=== PATIENT | female | born 1995 | race Caucasian/White ===

== ENCOUNTER 2016-12-06 17:19 | Emergency (ER) | payer OTHER ==
[2016-12-06 17:29] VITALS: BP 121/59; PULSE 80; TEMP 98.3; BMI 18.2
--- NOTE | 2016-12-06 18:06 | PDOC ---
History of Present Illness - General Chief Complaint: Urinary Problem Stated Complaint: KIDNEY INFECTION Time Seen by Provider: 12/06/16 17:48 History Source: Patient Exam Limitations: No Limitations - History of Present Illness Initial Comments: 12/06/16 18:41 Chief complaint: Painful urination with urgency and urinating more frequently for 2 days History of Present Illness: She is a 21-year-old female with a history of asthma and UTIs here today complaining of dysuria, urgency, and frequency 2 days. Patient denies any hematuria. Patient denies any fever, or any CVA tenderness or nausea or vomiting. Patient reports her last menstrual cycle being 11/17/2016. 12/06/16 18:49 Timing/Duration: getting worse Severity: moderate Associated Symptoms: reports: denies symptoms Past History - Past Medical History Allergies/Adverse Reactions: Allergies Allergy/AdvReac Type Severity Reaction Status Date / Time No Known Allergies Allergy Verified 12/06/16 17:24 Home Medications: Ambulatory Orders Nitrofurantoin Monohyd/M-Cryst [Macrobid -] 100 mg PO BID #14 capsule 12/06/16 Phenazopyridine HCl [Pyridium] 200 mg PO TID #5 tablet 12/06/16 Asthma: Yes - Immunization History Immunization Up to Date: Yes - Psycho/Social/Smoking Cessation Hx Anxiety: No Suicidal Ideation: No Smoking Status: No Smoking History: Never smoked Have you smoked in the past 12 months: No Number of Cigarettes Smoked Daily: 0 Information on smoking cessation initiated: No Hx Alcohol Use: No Drug/Substance Use Hx: No Substance Use Type: None Review of Systems - Review of Systems Able to Perform ROS?: Yes Constitutional: No: Symptoms Reported HEENTM: No: Symptoms Reported Respiratory: No: Symptoms reported Cardiac (ROS): No: Symptoms Reported ABD/GI: No: Symptoms Reported : Yes: Dysuria, Frequency, Urgency (for 2 hours ). No: Flank Pain, Hematuria Musculoskeletal: No: Symptoms Reported Integumentary: No: Symptoms Reported Neurological: No: Symptoms reported *Physical Exam - Vital Signs Last Vital Signs Temp Pulse Resp BP Pulse Ox 98.3 F 80 18 121/59 99 12/06/16 17:24 12/06/16 17:24 12/06/16 17:24 12/06/16 17:24 12/06/16 17:24 - Physical Exam General Appearance: Yes: Appropriately Dressed Respiratory/Chest: positive: Lungs Clear, Normal Breath Sounds. negative: Chest Tender, Respiratory Distress Cardiovascular: positive: Regular Rhythm, Regular Rate, S1, S2 Gastrointestinal/Abdominal: positive: Normal Bowel Sounds, Soft. negative: Tender, Organomegaly, Increased Bowel Sounds, Distended, Guarding, Rebound, Tenderness, Hepatomegaly, Spleenomegaly Musculoskeletal: negative: CVA Tenderness, CVA Tenderness (R), CVA Tenderness (L ) Integumentary: positive: Normal Color Neurologic: positive: Alert, Normal Response Medical Decision Making - Medical Decision Making 12/06/16 18:50 She is a 21-year-old female with a history of asthma and UTIs here today complaining of dysuria, urgency, and frequency 2 days. Patient denies any hematuria. Patient denies any fever, or any CVA tenderness or nausea or vomiting. Patient reports her last menstrual cycle being 11/17/2016. R/O UTI acute cystitis PLAN: urinalysis urine C &S urine hcg negative macrobid 100 mg po now than bid for 7 days pyridium 200 mg po now than tid for 2 days # 5 tabs given Laboratory Tests 12/06/16 18:20 Urine Color Ltyellow Urine Appearance Clear Urine pH 6.0 Ur Specific Lohn 1.023 Urine Protein Negative Urine Glucose (UA) Negative Urine Ketones Negative Urine Blood 1+ H Urine Nitrite Negative Urine Bilirubin Negative Urine Urobilinogen Negative Ur Leukocyte Esterase 1+ H Urine RBC 8 Urine WBC 29 Ur Epithelial Cells Rare Urine Mucus Rare Urine HCG, Qual Negative 12/06/16 19:40 *DC/Admit/Observation/Transfer Diagnosis at time of Disposition: Cystitis - Discharge Dispostion Disposition: HOME Condition at time of disposition: Stable - Patient Instructions Additional Instructions: Follow-up with your primary care provider for repeat urine testing at the end of treatment Return to emergency room if symptoms worsen any fever or nausea or vomiting Drink A lot of fluids especially cranberry juice Patient voiced understanding of discharge instructions and all questions were answered
[2016-12-06 18:39] LABS: URINE APPEARANCE CLEAR; URINE BILIRUBIN NEGATIVE (NEGATIVE); URINE COLOR LTYELLOW; URINE GLUCOSE (UA) NEGATIVE (NEGATIVE); URINE KETONE NEGATIVE (NEGATIVE); URINE NITRITE NEGATIVE (NEGATIVE); URINE PROTEIN NEGATIVE (NEGATIVE); URINE UROBILINOGEN NEGATIVE E.U./dl (0.2-1.0)
[2016-12-06 18:43] LABS: URINE BLOOD 1+ (NEGATIVE); URINE LEUK ESTERASE 1+ (NEGATIVE)
[2016-12-06 18:47] LABS: URINE MUCUS RARE; URINE RBC 8 /hpf (0-3); URINE WBC 29 /hpf (3-5)
[2016-12-06] MEDS ORDERED: PHENAZOPYRIDINE HCL 100 MG TABLET (FP) PO ONE (19:41)
[2016-12-06] MEDS ORDERED: PHENAZOPYRIDINE HCL 100 MG TABLET (FP) ONE (19:42)
[2016-12-06] MEDS ORDERED: NITROFURANTOIN MACROCRYSTAL 50 MG CAPSULE (FP) ONE (19:42)
[2016-12-06] MEDS ORDERED: NITROFURANTOIN MACROCRYSTAL 50 MG CAPSULE (FP) PO SCH (19:45)
== END 2016-12-06 19:58 | disposition home or self-care (01) ==
LOC: JERFT 17:19
DX: N30.90 Cystitis, unspecified without hematuria (principal); J45.909 Unspecified asthma, uncomplicated
CPT/HCPCS: 81003; 81015; 84703; 87086; 99281-25

== ENCOUNTER → 2017-01-29 | Emergency (ER) | payer OTHER ==
[2017-01-29 00:20] VITALS: BP 107/61; PULSE 76; TEMP 98; BMI 18.9
--- NOTE | 2017-01-29 00:36 | PDOC ---
History of Present Illness - General Chief Complaint: Vaginal Sxs Stated Complaint: SEVERE CRAMPS 7 WEEKS PREG Time Seen by Provider: 01/29/17 00:19 - History of Present Illness Initial Comments: 01/29/17 00:33 CHIEF COMPLAINT: severe cramping, 7 wks HISTORY OF PRESENT ILLNESS: 21 yo F with hx of asthma and UTIS presents to ED with severe cramping x 2 days. Patient denies any vaginal bleeding or vomiting, but report "a little nausea" and "diarrhea once a couple days ago." She denies any dysuria, urinary frequency, or hematuria. No recent travel or sick contacts. PAST MEDICAL HISTORY: Denies past medical history FAMILY HISTORY: Denies SOCIAL HISTORY: Denies tobacco, alcohol, illicit drug use. SURGICAL HISTORY: Denies ALLERGIES: No known drug allergies REVIEW OF SYSTEMS General/Constitutional: Denies fever or chills. Denies weakness, weight change. HEENT: Denies change in vision. Denies ear pain or discharge. Denies sore throat. Cardiovascular: Denies chest pain or shortness of breath. Respiratory: Denies cough, wheezing, or hemoptysis. Gastrointestinal: Cramping to lower abdomen x 2 days. "A little nausea." Denies vomiting or constipation. Denies vaginal bleeding. Genitourinary: Denies dysuria, frequency, or change in urination. Musculoskeletal: Denies joint or muscle swelling or pain. Denies neck or back pain. Skin and breasts: Denies rash or easy bruising. Neurologic: Denies headache, vertigo, loss of consciousness, or loss of sensation. PHYSICAL EXAM General Appearance: Well-appearing, appropriately dressed. No apparent distress. HEENT: EOMI, PERRLA, normal ENT inspection, normal voice, TMs normal, pharynx normal. No conjunctival pallor. No photophobia, scleral icterus. Respiratory/Chest: Lungs CTAB. Cardiovascular: RRR. S1, S2. Gastrointestinal/Abdominal: Normal bowel sounds. Abdomen soft, non-distended. No tenderness or rebound tenderness. No organomegaly, pulsatile mass, guarding , hernia, hepatomegaly, splenomegaly. Pelvic: External genitalia normal without lesions. Vaginal vault with white cottage cheese-like discharge. No blood appreciated. Cervix is long and closed. No cervical motion tenderness. Uterus is nontender and normal in size. Adnexa are nontender and without masses. Musculoskeletal/Extremities: Normal inspection. FROM of all extremities, normal capillary refill. Pelvis Stable. No CVA tenderness. No tenderness to extremities, pedal edema, swelling, erythema or deformity. Integumentary: Appropriate color, dry, warm. No cyanosis, erythema, jaundice or rash Neurologic: chief maintenance supervisor II-XII intact. Fully oriented, alert. Appropriate mood/affect. Motor strength 5/5. No appreciable EOM palsy, facial droop or sensory deficit. Past History - Past Medical History Allergies/Adverse Reactions: Allergies Allergy/AdvReac Type Severity Reaction Status Date / Time No Known Allergies Allergy Verified 01/29/17 00:17 Home Medications: Ambulatory Orders Miconazole Nitrate [Monistat 7] 45 gm VG DAILY #7 cream.appl 01/29/17 Vits #93/Iron Fum/FA [ Formula Tablet] 1 each PO DAILY Asthma: Yes - Immunization History Immunization Up to Date: Yes - Psycho/Social/Smoking Cessation Hx Anxiety: No Suicidal Ideation: No Smoking Status: No Smoking History: Never smoked Have you smoked in the past 12 months: No Number of Cigarettes Smoked Daily: 0 Information on smoking cessation initiated: No Hx Alcohol Use: No Drug/Substance Use Hx: No Substance Use Type: None *Physical Exam - Vital Signs Last Vital Signs Temp Pulse Resp BP Pulse Ox 98.0 F 76 14 107/61 99 01/29/17 00:18 01/29/17 00:18 01/29/17 00:18 01/29/17 00:18 01/29/17 00:18 ED Treatment Course - RADIOLOGY Radiology Studies Ordered: Category Date Time Status TRANSVAGINAL US PREG [US] Stat Ultrasound 01/29/17 00:31 Ordered Medical Decision Making - Medical Decision Making 01/29/17 01:00 21 yo F with hx of asthma and UTIs presents to ED with "severe cramping" x 2 days. -UA, UCx -Beta hCG -transvaginal U/S Pelvic exam remarkable for possible yeast infection. Discussed with patient; patient states she is asymptomatic and she just had a papsmear last week and was told that she had a yeast infection, but she is not using any medication for it. -Monistat 7 day 01/29/17 01:46 Ultrasound results: Single live intrauterine Gestational age 7 weeks 1 day heart rate 120 bpm Ovaries not seen No adnexal masses. Read by: Lillie Montes De Oca M.D. *DC/Admit/Observation/Transfer Diagnosis at time of Disposition: Abdominal cramps, Candidiasis of vagina - Discharge Dispostion Disposition: HOME Condition at time of disposition: Stable Admit: No - Prescriptions Prescriptions: Miconazole Nitrate [Monistat 7] 45 gm VG DAILY #7 cream.appl - Referrals Referrals: Abigail Russo MD [Primary Care Provider] - - Patient Instructions Printed Discharge Instructions: Common Discomforts and Bodily Changes During , Managing Symptoms of Additional Instructions: Please use medication as prescribed for your yeast infection. You must follow up with your OBGYN in TWO DAYS for further evaluation and management of your . If you experience any vaginal bleeding, increased cramping, abnormal discharge, or any new or worsening symptoms, please return to the ER.
[2017-01-29 01:40] LABS: URINE APPEARANCE CLEAR; URINE BILIRUBIN NEGATIVE (NEGATIVE); URINE BLOOD NEGATIVE (NEGATIVE); URINE COLOR YELLOW; URINE GLUCOSE (UA) NEGATIVE (NEGATIVE); URINE KETONE NEGATIVE (NEGATIVE); URINE LEUK ESTERASE NEGATIVE (NEGATIVE); URINE NITRITE NEGATIVE (NEGATIVE); URINE PROTEIN NEGATIVE (NEGATIVE); URINE UROBILINOGEN NEGATIVE E.U./dl (0.2-1.0)
== END | disposition home or self-care (01) ==
LOC: JER 00:12
DX: R10.30 Lower abdominal pain, unspecified (principal); N89.8 Other specified noninflammatory disorders of vagina; J45.909 Unspecified asthma, uncomplicated; Z87.440 Personal history of urinary (tract) infections
CPT/HCPCS: 36415; 76801-TC; 81003; 84702; 87086; 99282-25

== ENCOUNTER 2020-05-13 15:35 | Emergency (ER) | payer OTHER ==
[2020-05-13 15:46] VITALS: BMI 18.8
[2020-05-13] MEDS ORDERED: SODIUM CHLORIDE 0.9% 500 ML INFUS.BAG IV ONE (16:10)
[2020-05-13] MEDS ORDERED: ONDANSETRON 4 MG/2 ML VIAL IVPUSH ONE (16:11)
[2020-05-13] MEDS ORDERED: ACETAMINOPHEN 1000 MG/100 ML VIAL (NON FORMULARY) IVPB ONE (16:18)
[2020-05-13 16:29] LABS: BASO % 0.2 % (0-2.0); EOS % 2.6 % (0-4.5); HEMATOCRIT 39.5 % (32.4-45.2); HEMOGLOBIN 12.8 GM/dL (10.7-15.3); MCH 30.5 pg (25.7-33.7); MCHC 32.5 g/dl (32.0-36.0); MEAN CELL VOLUME 93.8 fl (80-96); MEAN PLT VOLUME 8.5 fl (7.5-11.1); MONO % 4.6 % (3.8-10.2); NEUT % 71.6 % (42.8-82.8); PLATELET COUNT 234 K/MM3 (134-434); RBC 4.21 M/mm3 (3.60-5.2); WHITE BLOOD COUNT 12.3 K/mm3 (4.0-10.0)
[2020-05-13 16:34] LABS: HCG,QUALITATIVE URINE Negative
[2020-05-13] MEDS ORDERED: ACETAMINOPHEN INJECTION 100 ML IVPB ONE (16:34)
[2020-05-13 16:37] LABS: URINE APPEARANCE Clear; URINE BILIRUBIN Negative (NEGATIVE); URINE COLOR Orange; URINE GLUCOSE (UA) Trace (NEGATIVE); URINE KETONE Trace (NEGATIVE); URINE LEUK ESTERASE 3+ (NEGATIVE); URINE NITRITE Positive (NEGATIVE); URINE PROTEIN 1+ (NEGATIVE)
[2020-05-13 16:43] LABS: EPI CELLS 72 /uL (0-25.1); HYALINE CASTS 1.54 /uL (0-3.1); URINE BACTERIA 1003.6 /uL (0-1359); URINE RBC 18.1 /uL (0-23.9)
[2020-05-13 16:59] LABS: ALBUMIN 4.4 g/dl (3.4-5.0); BILIRUBIN,TOTAL 0.9 mg/dL (0.2-1); BLOOD UREA NITROGEN 10.1 mg/dL (7-18); CALCIUM 9.3 mg/dL (8.5-10.1); CREATININE 0.8 mg/dL (0.55-1.3); POTASSIUM 3.8 mmol/L (3.5-5.1); TOT PROT 7.6 g/dl (6.4-8.2)
[2020-05-13] MEDS ORDERED: KETOROLAC TROMETHAMINE 30 MG/1 ML VIAL IVPUSH ONE (18:47)
[2020-05-13] MEDS ORDERED: CEFTRIAXONE 1 GM in DEXTROSE 5%-WATER - 100 ML IVPB ONE (18:48)
[2020-05-13] MEDS ORDERED: CEFTRIAXONE 1 GM/50 ML BAG ONE (18:59)
[2020-05-13] MEDS ORDERED: KETOROLAC TROMETHAMINE 30 MG/1 ML VIAL ONE (18:59)
[2020-05-13 22:02] VITALS: BP 102/74; PULSE 72; TEMP 98
== END 2020-05-13 22:04 | disposition home or self-care (01) ==
LOC: JER 15:35
PROC: 3E033GC Introduction of Other Therapeutic Substance into Peripheral Vein, Percutaneous Approach (ICD-10-PCS; principal; 2020-05-13)
DX: N12 Tubulo-interstitial nephritis, not specified as acute or chronic (principal)
CPT/HCPCS: 36415; 74176-TC; 76830-TC; 80053; 81003; 84703; 85025; 87086; 99285-25; J0131

== ENCOUNTER 2022-07-08 04:47 | Inpatient (IN) | payer BC, OTHER ==
[2022-07-08] MEDS ORDERED: PROMETHAZINE HCL 25 MG/1 ML VIAL IVPUSH ONE (05:44)
[2022-07-08] MEDS ORDERED: BUTORPHANOL TARTRATE 1 MG/ML VIAL IVPB SCH (05:45)
[2022-07-08] MEDS ORDERED: AMPICILLIN - 2 GM in SODIUM CHLORIDE 100 ML IVPB ONE (05:47)
[2022-07-08] MEDS ORDERED: OXYTOCIN 30 UNITS in 0.9% NS 30 UNIT/500 ML INFUS.BAG IVPB SCH (06:00)
[2022-07-08] MEDS: ELECTROLYTE-148 SOLN 1,000 ML IV SCH ×3 (06:00→11:00)
[2022-07-08] MEDS ORDERED: AMPICILLIN - 1 GM in SODIUM CHLORIDE 100 ML IVPB ONE (06:20)
[2022-07-08] MEDS ORDERED: AMPICILLIN SODIUM 2 GM VIAL ONE (06:21)
[2022-07-08 06:36] VITALS: BMI 24.6
[2022-07-08 06:51] LABS: BASO % 0.2 % (0-2.0); EOS % 1.4 % (0-4.5); HEMOGLOBIN 9.4 GM/dL (10.7-15.3); LYMPH % 20.8 % (8-40); MCH 23.9 pg (25.7-33.7); MCHC 31.3 g/dl (32.0-36.0); MEAN CELL VOLUME 76.2 fl (80-96); MEAN PLT VOLUME 8.3 fl (7.5-11.1); MONO % 5.1 % (3.8-10.2); NEUT % 72.5 % (42.8-82.8); PLATELET COUNT 253 10^3/uL (134-434); RBC 3.93 M/mm3 (3.60-5.2); RDW 16.1 % (11.6-15.6); WHITE BLOOD COUNT 13.9 K/mm3 (4.0-10.0)
[2022-07-08] MEDS ORDERED: FENTANYL/BUPIVACAINE/NS/PF - PCEA - 50 ML DISP.SYRIN EP ONE ×2 (07:27→12:11)
[2022-07-08] MEDS: FENTANYL/BUPIVACAINE/NS/PF - PCEA - 50 ML DISP.SYRIN EP SCH ×2 (08:05→12:15)
[2022-07-08] MEDS ORDERED: NALOXONE HCL 0.4 MG/ML VIAL IVPUSH PRN (09:21)
[2022-07-08] MEDS ORDERED: OXYTOCIN 30 UNITS in 0.9% NS 30 UNIT/500 ML INFUS.BAG IVPB ONE (09:27)
[2022-07-08] MEDS ORDERED: AMPICILLIN - 1 GM in SODIUM CHLORIDE 100 ML IVPB SCH (10:00)
[2022-07-08] MEDS ORDERED: AMPICILLIN SODIUM 1 GM VIAL ONE (10:23)
[2022-07-08] MEDS: AMPICILLIN - 1 GM in SODIUM CHLORIDE 100 ML IVPB SCH ×2 (10:30→15:27)
[2022-07-08] MEDS ORDERED: OXYTOCIN 20 UNITS in 0.9% NS 20 UNIT/1,000 ML INFUS.BAG IV ONE (11:31)
[2022-07-08] MEDS ORDERED: ACETAMINOPHEN 325 MG TABLET (FP) ONE (13:27)
[2022-07-08] MEDS: ACETAMINOPHEN 325 MG TABLET (FP) PO PRN (13:30)
[2022-07-08 14:05] LABS: CORD BASE EXCESS -4.9 mmol/L (0-2); CORD HCO3 23.7 mmHg (20-29); CORD PCO2 57.8 mmHg (30-78); CORD pH 7.23 (7.14-7.44)
[2022-07-08 14:07] LABS: CORD HCO3 22.5 mmHg (20-29); CORD pH 7.307 (7.14-7.44)
[2022-07-08] MEDS ORDERED: BENZOCAINE 28 GM HEMORRHOIDAL OINTMENT TP PRN (14:37)
[2022-07-08] MEDS ORDERED: WITCH HAZEL 50% (TUCKS) 40 PAD/JAR PAD TP PRN (14:37)
[2022-07-08] MEDS ORDERED: METHYLERGONOVINE MALEATE 0.2 MG/1 ML AMP IM PRN (14:37)
[2022-07-08] MEDS ORDERED: oxyCODONE HCL 5 MG TABLET PO PRN (14:37)
[2022-07-08] MEDS ORDERED: BISACODYL 10 MG SUPP.RECT RC PRN (14:37)
[2022-07-08] MEDS ORDERED: BENZOCAINE 20% 57 GM BOTTLE TP PRN (14:37)
[2022-07-08] MEDS ORDERED: OXYTOCIN 20 UNITS in 0.9% NS 20 UNIT/1,000 ML INFUS.BAG IV SCH (14:45)
[2022-07-08 15:38] LABS: HIV INTERPRETATION NEGATIVE (NEGATIVE)
[2022-07-08] MEDS: IBUPROFEN 600 MG TABLET (FP) PO PRN ×2 (17:50→22:18)
[2022-07-08] MEDS: FERROUS SO4 325 MG TABLET (FP) PO SCH (17:50)
[2022-07-09] MEDS: IBUPROFEN 600 MG TABLET (FP) PO PRN ×2 (06:21→20:12)
[2022-07-09 09:27] LABS: BASO % 0.2 % (0-2.0); EOS % 0.8 % (0-4.5); HEMATOCRIT 23.7 % (32.4-45.2); HEMOGLOBIN 7.3 GM/dL (10.7-15.3); LYMPH % 15.2 % (8-40); MCH 23.9 pg (25.7-33.7); MCHC 30.9 g/dl (32.0-36.0); MEAN CELL VOLUME 77.1 fl (80-96); MEAN PLT VOLUME 8.2 fl (7.5-11.1); MONO % 5.8 % (3.8-10.2); PLATELET COUNT 212 10^3/uL (134-434); RBC 3.07 M/mm3 (3.60-5.2); WHITE BLOOD COUNT 17.4 K/mm3 (4.0-10.0)
[2022-07-09] MEDS: FERROUS SO4 325 MG TABLET (FP) PO SCH ×3 (09:37→18:00)
[2022-07-09] MEDS: PRENATAL VITAMINS W/ FOLIC ACID TABLET (FP) PO SCH (09:37)
[2022-07-09] MEDS: ACETAMINOPHEN 325 MG TABLET (FP) PO PRN (12:28)
[2022-07-09] MEDS: AMOX TR/POT CLAV 500MG/125MG TABLETS (FP) PO SCH (18:00)
[2022-07-09] MEDS ORDERED: SENNOSIDES/DOCUSATE COMBO (SENNA PLUS) TABLET (UD) PO PRN (22:00)
[2022-07-09 22:40] VITALS: PULSE 78
[2022-07-10] MEDS: IBUPROFEN 600 MG TABLET (FP) PO PRN (06:02)
[2022-07-10] MEDS: AMOX TR/POT CLAV 500MG/125MG TABLETS (FP) PO SCH (08:27)
[2022-07-10] MEDS: FERROUS SO4 325 MG TABLET (FP) PO SCH ×2 (08:28→11:58)
[2022-07-10 08:48] LABS: BASO % 0.1 % (0-2.0); EOS % 1.5 % (0-4.5); HEMATOCRIT 25.1 % (32.4-45.2); HEMOGLOBIN 7.9 GM/dL (10.7-15.3); LYMPH % 20.2 % (8-40); MCHC 31.4 g/dl (32.0-36.0); MEAN CELL VOLUME 76.4 fl (80-96); MEAN PLT VOLUME 8.2 fl (7.5-11.1); MONO % 4.3 % (3.8-10.2); NEUT % 73.9 % (42.8-82.8); PLATELET COUNT 238 10^3/uL (134-434); RBC 3.29 M/mm3 (3.60-5.2); RDW 16.1 % (11.6-15.6); WHITE BLOOD COUNT 13.2 K/mm3 (4.0-10.0)
[2022-07-10] MEDS: PRENATAL VITAMINS W/ FOLIC ACID TABLET (FP) PO SCH (09:47)
[2022-07-10 10:32] VITALS: BP 102/66; RESP 20; TEMP 98.1
== END 2022-07-10 13:15 | disposition home or self-care (01) | DRG 807 ==
LOC: JLDR 04:47 → J3W 14:54
PROVIDERS: ADMIT Obstetrics & Gynecology; ATTEND Obstetrics & Gynecology
PROC: 0HQ9XZZ Repair Perineum Skin, External Approach (ICD-10-PCS; principal; 2022-07-08)
PROC: 10E0XZZ Delivery of Products of Conception, External Approach (ICD-10-PCS; 2022-07-08)
DX: O99.824 Streptococcus B carrier state complicating childbirth (principal); Z37.0 Single live birth; O70.0 First degree perineal laceration during delivery; Z3A.39 39 weeks gestation of pregnancy
CPT/HCPCS: 36415; 36600; 59409; 82803; 85025; 86850; 86900; 86901; 87389